=== PATIENT | female | born 1980 | race American Indian/Alaskan Native ===

== ENCOUNTER 2017-03-28 14:23 | Emergency (ER) | payer MEDICAID ==
[2017-03-28 14:57] VITALS: BP 129/81; PULSE 81; RESP 20; TEMP 98.1; O2SAT 100; BMI 29.7
[2017-03-28 15:18] LABS: RBC URINE 1 /hpf (0-3); URINE BILIRUBIN NEGATIVE (NEGATIVE); URINE BLOOD NEGATIVE (NEGATIVE); URINE COLOR Yellow (YELLOW); URINE GLUCOSE (UA) NORMAL (Normal); URINE KETONE NEGATIVE (NEGATIVE); URINE LEUKOCYTE ESTERASE NEG Leu/uL (Negative); URINE PROTEIN NEGATIVE (NEGATIVE); URINE UROBILINOGEN NORMAL mg/dL (0.2-1.0); WBC URINE < 1 /hpf (0-5)
--- NOTE | 2017-03-28 15:18 | C.PDOC ---
History Of Present Illness 36 YO female come in request STD prophylactic treatment after possible exposure to Chlamydia. Pt reports, " had sex last night and condom broke, noted some discharges from partner". Otherwise, pt denies any active complaints at present time. Ambulate to Ed for evaluation, not in any apparent distress. Time Seen by Provider: 03/28/17 14:35 Chief Complaint (Nursing): Female Genitourinary History Per: Patient Past Medical History Reviewed: Historical Data, Nursing Documentation, Vital Signs Vital Signs: Last Vital Signs Temp 98.1 F 03/28/17 14:35 Pulse 81 03/28/17 14:35 Resp 20 03/28/17 14:35 BP 129/81 03/28/17 14:35 Pulse Ox 100 03/28/17 15:24 - Medical History PMH: No Chronic Diseases, Depression Family History: States: No Known Family Hx - Social History Hx Tobacco Use: Yes Hx Alcohol Use: No Hx Substance Use: Yes - Immunization History Hx Tetanus Toxoid Vaccination: No Hx Influenza Vaccination: No Hx Pneumococcal Vaccination: No Review Of Systems Except As Marked, All Systems Reviewed And Found Negative. Constitutional: Negative for: Fever, Chills Eyes: Negative for: Redness ENT: Negative for: Throat Pain Respiratory: Negative for: Cough Gastrointestinal: Negative for: Nausea, Vomiting, Abdominal Pain, Diarrhea Genitourinary: Negative for: Dysuria, Frequency, Vaginal Discharge, Rash Musculoskeletal: Negative for: Back Pain Skin: Negative for: Rash Neurological: Negative for: Headache Physical Exam - Physical Exam Appears: Well, Non-toxic, No Acute Distress Skin: Normal Color, Warm, No Rash Oral Mucosa: Moist Tongue: No Lesions Throat: No Erythema, No Exudate Neck: Supple Cardiovascular: Rhythm Regular Respiratory: No Decreased Breath Sounds, No Accessory Muscle Use, No Stridor, No Wheezing Gastrointestinal/Abdominal: Soft, No Tenderness Back: No CVA Tenderness Pelvic: Other (refused) Extremity: No Pedal Edema Neurological/Psych: Oriented x3, Normal Speech ED Course And Treatment O2 Sat by Pulse Oximetry: 100 Pulse Ox Interpretation: Normal Progress Note: On re-evaluation, pt is afebrile, hemodynamicaly stable. Non- toxic. PulseOx 100% RA. neck: (-) meningeal sign. ENT: no acute findings. Lungs: CTA B/L, BS equal B/L. Abd: benign, (-) guarding, (-) rebound. UA review and appears normal study. Ucx, GC probe- pending. pt encourage partner( s) to be checke dand treated. COuseled on sexual protection. ref. to f[facility]u with [facility] in 2-3 days for re-eval and test results. return to ED if any worsening or new changes. Disposition Counseled Patient/Family Regarding: Studies Performed, Diagnosis, Need For Followup, Rx Given - Disposition Referrals: [facility] [Outside] [facility] [Outside] Disposition: HOME/ ROUTINE Disposition Time: 15:23 Condition: STABLE Additional Instructions: Take medication as prescribed Follow up with [facility] in 2-3 days for re-evaluation. Return to ED if any worsening or new changes. Prescriptions: Doxycycline Hyclate [Doryx] 100 mg PO BID #14 cap Instructions: Sexually Transmitted Diseases (ED) - Clinical Impression Clinical Impression: STD (female)
== END 2017-03-28 16:21 | disposition home or self-care (01) ==
LOC: C.ER 14:23
DX: A64 Unspecified sexually transmitted disease (principal)